=== PATIENT | male | born 1965 | race African-American/Black ===

== ENCOUNTER 2021-01-13 16:20 | Emergency (ER) | payer MEDICARE, MEDICAID ==
[~2021-01-13] VITALS: Ht 170.2 cm; Wt 79.0 kg
[2021-01-13 16:30] VITALS: BP 146/90
[2021-01-13] MEDS ORDERED: LIDOCAINE 1%/EPI 1:100,000 20 ML VIAL. IJ ONE (17:00)
[2021-01-13] MEDS ORDERED: HYDR-2759 PO (17:25)
[2021-01-13] MEDS ORDERED: HYDR-2155 PO (17:27)
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
== END 2021-01-13 17:49 | disposition home or self-care (01) ==
LOC: ER 16:20
DX: K64.5 Perianal venous thrombosis (principal)
CPT/HCPCS: 99283-25

== ENCOUNTER 2021-02-06 08:39 | Emergency (ER) | payer MEDICARE, MEDICAID ==
[~2021-02-06] VITALS: Ht 170.2 cm; Wt 79.0 kg
[~2021-02-06 08:39] MED LIST: HYDR-2155 PO; HYDR-2759 PO
[2021-02-06 08:43] VITALS: BP 146/94
[2021-02-06] MEDS: KETOROLAC 60 MG/2 ML VIAL. IM ONE (09:00)
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
[2021-02-06] MEDS: HYDROcodone/APAP 7.5/325MG 1 TAB TABLET PO ONE (09:34)
--- NOTE | 2021-02-06 09:35 | RAD ---
Three-view left wrist dated 02/06/2021 No comparison available Clinical data indication: Pain after fall. FINDINGS: 3 views of left wrist show comminuted intra-articular fracture of the distal radius with mild volar a ngulation at the fracture site. Distal ulna is intact. Carpal bones are intact. Mild soft tissue swel ling. IMPRESSION: Intra-articular fracture of the distal radius. Electronically signed by: Yovani Austin MD (02/06/2021 9:33 AM) [id number]
--- NOTE | 2021-02-06 09:39 | RAD ---
EXAMINATION: XR KNEE _3 VIEWS_LT CLINICAL HISTORY: Fall TECHNIQUE: XR KNEE _3 VIEWS_LT Number of Images/Views: 3 COMPARISON: None FINDINGS: Oblique fracture extending from the lateral tibial plateau to the medial tibial metaphysis with minim al lateral displacement of the tibia relative to the large fracture fragment. Joint spaces and alignm ent otherwise relatively well-maintained. Small suprapatellar enthesophyte. [id number] joint e ffusion. IMPRESSION: Minimally displaced tibial plateau fracture as described. Electronically signed by: Chiki Haque DO (02/06/2021 9:37 AM) TE
[2021-02-06] MEDS ORDERED: HYDR-2759 PO (09:47)
[2021-02-06] MEDS ORDERED: CRUT1EAC3 MC (09:58)
== END 2021-02-06 10:20 | disposition home or self-care (01) ==
LOC: ER 08:39
DX: S82.142A Displaced bicondylar fracture of left tibia, initial encounter for closed fracture (principal); S52.502A Unspecified fracture of the lower end of left radius, initial encounter for closed fracture; Z88.8 Allergy status to other drugs, medicaments and biological substances; W18.39XA Other fall on same level, initial encounter; Y93.72 Activity, wrestling; Y92.89 Other specified places as the place of occurrence of the external cause; Y99.8 Other external cause status
CPT/HCPCS: 29125; 29505; 73110; 73562; 99284